=== PATIENT | male | born 1950 | race Caucasian/White ===

== ENCOUNTER → 2023-09-01 07:27 | Outpatient (CLI) | payer OTHER, SELFPAY ==
--- NOTE | 2023-09-01 | DI.ECHO.S_ITS ---
[facility]---------+ [facility] +---------+ : : [address] : [address] : : : : [id number] : : : : Phone: [phone]---------+ Echocardiogram Report + + :Name: JAY JAY PÉREZ Study Date: 09/01/2023 Height: 68.5 in: :[facility] ReadingLocation: Weight: 203 lb : : Gender: Male BSA: 2.1 m2 : :: 1950 Age: 73 yrs BP: 105/63 mmHg: :Reason For Study: DYSPNEA : :Ordering Physician: FORREST, : :SHAYY Performed By: Magalys Escobar : :Referring: SHAYY FAULKNER : + + Interpretation Summary 1) Normal left ventricular thickness and size with low normal systolic function (EF 50-55%). 2) Normal right ventricular size with mildly reduced function. 3) No significant valvular abnormalities. 4) No prior Echo available for comparison. Procedure: A two-dimensional transthoracic echocardiogram with color flow and Doppler was performed. The study quality was technically adequate. There is no prior echocardiogram noted for this patient. The patient was in sinus rhythm with heart rates between 57-70 bpm during the exam. Left Ventricle: The left ventricle is normal in size and wall thickness. The ejection fraction is estimated to be 50-55%. There are no focal wall motion abnormalities. Diastolic parameters suggest a relaxation abnormality of the left ventricle, consistent with probable normal filling pressures. Right Ventricle: The right ventricle is normal size. Right ventricular systolic function is mildly reduced. Atria: The left atrial size is normal. Right atrial size is normal. There is no Doppler evidence for an interatrial shunt. Mitral Valve: The mitral valve is normal in structure and function. There is trace mitral regurgitation. Aortic Valve: The aortic valve is trileaflet. The aortic valve opens well. There is no aortic valve stenosis. No aortic regurgitation is present. Tricuspid Valve: The tricuspid valve is normal in structure and function. There is trace tricuspid regurgitation. Pulmonic Valve: The pulmonic valve is not well seen, but is grossly normal. There is a trace or physiologic amount of pulmonic regurgitation. Great Vessels: The aortic root is normal size. The dimensions of the ascending aorta are normal. The IVC is of normal diameter and collapses greater than 50% with a sniff. This suggests a low right atrial pressure of 3 mm Hg. Pericardium/ Pleura There is no pericardial effusion. There is no pleural effusion. MMode/2D Measurements & Calculations LVIDd: 5.8 cm LVOT diam: 2.4 cm LVIDs: 4.2 cm Ao root diam: 3.8 cm FS: 27.8 % asc Aorta Diam: 3.4 cm EPSS: 0.87 cm Ao Arch Diam (Prox Trans): 3.4 cm IVSd: 0.67 cm LVPWd: 0.87 cm LV brar. diameter/BSA (cm/m^2): 2.8 LV sys. diameter/BSA (cm/m^2): 2.0 LA A2 area: 17.8 cm2 RA long axis: 4.9 cm LA A4 area: 18.6 cm2 RA area: 16.8 cm2 LA length (vol): 5.1 cm RA vol: 49.5 ml LA vol: 55.3 ml RA : 23.9 ml/m2 LA vol index: 26.7 ml/m2 IVC diam: 1.2 cm RVD1 (basal): 3.8 cm TAPSE: 1.6 cm Doppler Measurements & Calculations Ao V2 max: 101.6 cm/sec LVOT Max Steven: 75.7 cm/sec Ao V2 mean: 76.7 cm/sec LV V1 max P.3 mmHg Ao max P.1 mmHg LV V1 VTI: 16.6 cm Ao mean P.5 mmHg KEANU(I,D): 3.4 cm2 Ao V2 VTI: 22.5 cm KEANU(V,D): 3.4 cm2 sev ratio: 0.74 KEANU indexed to BSA (cm^2/m^2): 1.6 MV E max steven: 45.7 cm/sec PA V2 max: 89.7 cm/sec MV A max steven: 50.5 cm/sec PA V2 mean: 58.3 cm/sec MV E/A: 0.90 PA mean P.5 mmHg Med Peak E' Steven: 9.5 cm/sec PA pr(Accel): 19.1 mmHg E/E' med: 4.8 Lat Peak E' Steven: 8.2 cm/sec E/E' lat: 5.6 E/e' average: 5.2 MV dec time: 0.32 sec SV(LVOT): 75.8 ml Reading Physician:12:14 PM
--- NOTE | 2023-09-01 21:56 | DI.NM.S_ITS ---
DATE OF SERVICE: 09/01/2023 PROCEDURE: Exercise treadmill stress test without imaging. ORDERING PROVIDER: Carlos Faulkner MD. INDICATIONS: The patient is a 72-year-old male with PVCs and exertional dyspnea. FINDINGS: 1. The patient was able to exercise for 5 minutes and 32 seconds on a standard [facility] protocol suggesting mildly impaired exercise capacity with an CURT of +9%, achieving 6.7 METS. 2. He had a normal heart rate and blood pressure response to exercise, achieving a maximum heart rate of 134 bpm (91% of his predicted maximum). Oxygen saturation remained 93% to 94% despite moderate exertional dyspnea. 3. He had no chest discomfort or other anginal symptoms with exercise. 4. His resting ECG showed sinus rhythm with rare isolated PVCs, but normal ST segments. With stress, there were no significant ST-segment shifts or arrhythmias, and specifically, no PVCs with stress although they returned in recovery, rarely in couplets, but no other complex ectopy. IMPRESSION: 1. Normal exercise treadmill stress test for ischemia. 2. Mildly impaired exercise capacity without angina although moderate dyspnea despite normal oxygen saturation. 3. He had occasional PVCs at rest that resolved with exercise but returned in recovery, rarely in couplets, but no other complex ectopy. BocanegraJono - ROSA/galo/COURTNEY doc#: [id number]/job#: [id number] dd: 09/01/2023 17:39:00 dt: 09/01/2023 21:45:00 DICTATING MD/COPIES TO: Guido Rose MD; Carlos Faulkner MD COPIES MNE: HOMERO;
== END ==
PROVIDERS: PCP Nurse Practitioner; Referring Provider Internal Medicine Cardiovascular Disease; Visit Provider Internal Medicine Cardiovascular Disease
DX: R06.09 Other forms of dyspnea (principal); I49.3 Ventricular premature depolarization
CPT/HCPCS: 93017; 93306